=== PATIENT | female | born 1960 | race Caucasian/White ===

== ENCOUNTER → 2018-07-02 08:44 | Outpatient (CLI) | payer OTHER, SELFPAY ==
[2018-07-02 09:50] LABS: Basophils # 0.1 K/mm3 (0-0.2); Basophils % 0.9 % (0.1-2.0); Eosinophils # 0.3 K/mm3 (0.0-0.4); Eosinophils % 4.4 % (0.1-12.0); Hemoglobin 13.2 g/dL (12.2-16.2); Lymphocytes # 2.2 K/mm3 (0.7-4.5); Lymphocytes % 34.8 K/mm3 (10-50); Mean Corpuscular Hemoglobin 30.8 pg (27.0-31.2); Mean Corpuscular Volume 93.2 fl (81-99); Mean Platelet Volume 7.5 fl (7.4-10.4); Monocytes # 0.4 K/mm3 (0.1-1.0); Monocytes % 6.9 % (1.7-9.3); Neutrophils # 3.4 K/mm3 (1.8-7.8); Platelet Count 271 K/mm3 (142-424); Red Cell Distribution Width 12.7 % (11.5-17.5); White Blood Count 6.4 K/mm3 (4.8-10.8)
[2018-07-02 11:24] LABS: Alanine Aminotransferase 28 U/L (12-78); Albumin Level 3.7 gm/dL (3.4-5.0); Albumin/Globulin Ratio 1.3 (1.1-1.8); Alkaline Phosphatase 92 U/L (46-116); Anion Gap 9.6 mEq/L (5-15); Aspartate Amino Transferase 16 U/L (15-37); Bilirubin,Total 0.7 mg/dL (0.2-1.0); Blood Urea Nitrogen 17 mg/dL (7-18); Carbon Dioxide 31 mmol/L (21.0-32.0); Chloride 106 mmol/L (98-107); Chol/HDL Ratio 2.7 (1-3.5); Cholesterol 156 mg/dL (140-200); Creatinine,Serum 0.83 mg/dL (0.55-1.02); Estimated Glomerular Filt Rate 71 ml/min (>60); GFR (African American) 86 ML/MIN (>60); Globulin 2.9 gm/dl (1.3-3.2); Glucose 91 mg/dL (74-106); HDL Cholesterol 58 mg/dL (29-89); LDL Cholesterol 82 mg/dL (0-130); Potassium 4.6 mmoL/L (3.5-5.1); Sodium 142 mmol/L (136-145); T4 (Thyroxine) 11.1 ug/dl (4.7-13.3); Thyroid Stimulating Hormone 3.61 uIU/ml (0.358-3.740); Total Protein,Serum 6.6 gm/dL (6.4-8.2); Triglycerides 79 mg/dL (30-200); VLDL Cholesterol 16 mg/dL (0-40)
[2018-07-04 07:53] LABS: Vitamin D 25 Hydroxy 24.6 ng/mL (30.0-100.0)
[2018-07-04 07:54] LABS: Vitamin B12 276 pg/mL (232-1245)
== END ==
PROVIDERS: PCP Family Medicine; Visit Provider Family Medicine
DX: E03.9 Hypothyroidism, unspecified (principal); E78.5 Hyperlipidemia, unspecified; I10 Essential (primary) hypertension; R25.2 Cramp and spasm; R53.83 Other fatigue
CPT/HCPCS: 36415; 80053; 80061; 82607; 82652; 84436; 84443; 85025

== ENCOUNTER → 2018-07-06 13:51 | Outpatient (CLI) | payer OTHER, SELFPAY ==
--- NOTE | 2018-07-06 14:30 | MM_ITS ---
MM Dig screening mamm BI w/CAD ORDERING PHYSICIAN : James Davis MD PATIENT AGE: 58 years GENDER: Female COMPARISON: March 2012, December 2009 studies from [facility] INDICATION: ITS.REASON: SCREENING TECHNIQUE: Standard CC and MLO images were obtained. R2 CAD reviewed. FINDINGS: . Moderate density mildly heterogeneous breast bilaterally, this breast pattern the sensitivity of mammography No focal area of significant concern either breast.Bilateral follow-up in one year recommended. Would note Ultrasound can compliment/augment mammography with moderately dense breast of this character. If any palpable areas arise ultrasound can be useful compliment to mammography. RIGHT BREAST:No new areas significant concern. Follow-up in one year would be recommended and encouraged LEFT BREAST:. Stable appearance the left breast with no significant new findings. Similar areas of density IMPRESSION: ...... No new areas of significant concern either breast. Moderately dense inhomogeneous breast pattern does decreases to mammography somewhat. ultrasound can be useful compliment to mammography Bilateral follow-up in one year recommended and should be emphasized & encouraged.. BI-RADS Category: 2 2 Benign Finding(s) RECOMMENDED FOLLOW-UP: 1YR 1 YEAR FOLLOW-UP (A letter has been sent to the patient regarding results of the study.)
== END ==
PROVIDERS: PCP Family Medicine; Visit Provider Family Medicine
DX: Z12.31 Encounter for screening mammogram for malignant neoplasm of breast (principal)
CPT/HCPCS: 77067

== ENCOUNTER → 2018-10-17 13:50 | Outpatient (CLI) | payer OTHER, SELFPAY ==
--- NOTE | 2018-10-17 14:04 | XR_ITS ---
XR thoracic spine 3V Ordering Physician: James Davis MD Patient Age: 58 years: Female HISTORY: ITS.REASON: ACUTE RT THORACIC BACK PAIN TECHNIQUE: AP lateral and swimmer's view T-spine. COMPARISON :Previous chest film 04/04/1970 & FINDINGS . The thoracic vertebral bodies are intact with no compression fracture nor obvious lesion. There are degenerative changes of marginal osteophytes throughout the T-spine, most evident mid and lower T-spine anteriorly with marginal osteophytes at most levels more evident to the right than left. The pedicles intact no paraspinal mass. Ribs adjacent the spine unremarkable. Old screen illness disease changes again noted and described on previous chest film Disc spaces are fairly well-maintained throughout the T-spine with only some borderline narrowing left at T 9/10 and borderline diffuse disc disc narrowing T10-11 IMPRESSION: . No acute findings T-spine. Minimal degenerative changes T-spine manifest primarily by marginal osteophyte formation throughout the mid and lower T-spine. Borderline disc space narrowing lower T-spine T10-11, & left T9/10 Extensive Granulomatous disease disease lungs again incidentally noted
--- NOTE | 2018-10-17 14:04 | XR_ITS ---
XR lumbar spine min 4V Ordering Physician: James Davis MD Patient Age: 58 years: Female HISTORY: Low back pain TECHNIQUE: Five-view lumbar spine series COMPARISON : No relevant previous studies FINDINGS The lumbar vertebral bodies are intact with no compression fracture or lesion. Bones fairly well mineralized Most notable feature is the degenerative Disc space narrowing L4/5. Slightly more pronounced at the right. Mild spondylosis with some mild posterior ridging at this level most evident to the right Only minor anterior marginal osteophyte formation throughout the L-spine & into the lower T-spine. Other also some degenerative facet changes bilaterally L5/S1 right greater than left. The sacrum intact. SI joints unremarkable. Pedicles transverse processes unremarkable. IMPRESSION: Developing degenerative changes lumbar spine . Degenerative disc narrowing at L 4/5 most evident to the right Minimal anterior marginal osteophyte formation throughout L-spine, most evident to the right L4/5 L3/4
== END ==
PROVIDERS: PCP Family Medicine; Visit Provider Family Medicine
DX: M54.6 Pain in thoracic spine (principal)
CPT/HCPCS: 72072; 72110

== ENCOUNTER 2018-11-22 14:30 | Outpatient (RCR) | payer OTHER, SELFPAY ==
--- NOTE | 2018-10-28 16:23 | HMH.PTOPEV ---
PT Outpatient Evaluation Rehab PT Outpatient Evaluation Start: 10/28/18 14:25 Freq: Status: Active Protocol: Document 10/28/18 15:22 PHOCANDELARIA (Rec: 10/28/18 16:17 PHORNE [id number]) Electronically Signed By Navin Duran, PT 10/28/18 15:22 Outpatient Therapy Subjective History Subjective History Pt is a 58 yowf with complaints of low back pain which radiates into the right LE. Pt reports pain started in August when she woke up. Pt reports pain is a 5/10 at the moment, 3/10 at best, and 10/ 10 at worst. Pt states when pain is bad, her right hip locks and will not move. Pt describes pain as burning, achy, tingly, and numb at times. Pt states symptoms are worst when sitting, driving, or bending, and pain is relieved by rest, heat, or laying on her left side. Pt reports having HTN, COPD and thyroid issues. Pt reports smoking 2-3 packs a day for majority of her life, but has recently quit. Pt denies significant surgeries or comorbidities. Chief Complaint Pain Stiff Weakness Symptom Type Ache Sharp Burning Numbness Tingling Shooting Symptoms Relieved By Rest/Positioning Symptoms Aggravated By Prone Sitting Standing Bending/Stooping Physical Activity Twisting Walking Lifting Prior Functional Limitations None Current Functional Limitations Lifting Housework Driving Sleeping Standing Sitting Squatting Walking Stairs Symptom Descrip
== END 2018-11-22 14:35 | disposition home or self-care (01) ==
LOC: PT 14:30
PROVIDERS: Visit Provider Family Medicine
DX: M54.5 Low back pain (principal)
CPT/HCPCS: 97010; 97012; 97014; 97110; 97140; 97163; G0283

== ENCOUNTER 2020-09-24 22:05 | Emergency (ER) | payer OTHER, SELFPAY ==
[2020-09-24 22:15] VITALS: BMI 36.3
--- NOTE | 2020-09-24 22:15 | XR_ITS ---
PROCEDURE: XR CHEST 2V CLINICAL HISTORY: fall Posttraumatic pain COMPARISON: CR CXR CHEST(2 VIEWS-NOT PORTABLE) from 04/03/2017 CR CXR CHEST(2 VIEWS-NOT PORTABLE) from 04/04/2017 CR XR CHEST 2V from 07/03/[address] CHEST WO CON from 09/24/2020 FINDINGS: The cardiomediastinal silhouette and pulmonary vascularity are within normal limits. Numerous small calcified nodules/miliary pattern noted consistent with old granulomatous disease. Mild degenerative changes thoracic spine IMPRESSION: No acute findings. Dictated by: Abiodun Clarke MD 09/25/2020 05:35 Abiodun Clarke MD in [place] 09/25/2020 05:35
--- NOTE | 2020-09-24 22:15 | CT_ITS ---
PROCEDURE: CT CHEST WO CON CLINICAL INDICATION: fall Posttraumatic pain, fall with injury and pain, rib pain COMPARISON: No exams were available for comparison TECHNIQUE: Axial images obtained with sagittal and coronal reformats. All CT scans at the facility use one or more dose reduction, viz: automated exposure control, ma/kV adjustment per patient size (including targeted exams where dose is matched to indication, i.e. head), or iterative reconstruction technique. 3D reformatted images performed of thoracic cage FINDINGS: HEART AND MEDIASTINAL STRUCTURES: No evidence of aortic aneurysm. Calcified lymph nodes are present in the ander. No mediastinal adenopathy. There is mild thickening of the pericardium measuring up to 1.2 cm LUNGS AND PLEURAL SPACES: Innumerable tiny calcified nodule/miliary pattern noted consistent with old granulomatous disease. No lobar consolidation or collapse. No effusions. BONY STRUCTURES: No acute bony abnormalities apparent. Thoracic spine spondylosis UPPER ABDOMEN: Possible horseshoe kidney incompletely imaged. ADDITIONAL FINDINGS: No other significant abnormalities. IMPRESSION: 1. No acute finding. 2. Small pericardial effusion. 3. Other nonacute findings as described above Dictated by: Abiodun Clarke MD 09/25/2020 06:06 Abiodun Clarke MD in [place] 09/25/2020 06:06
[2020-09-24 22:22] VITALS: BP 148/100; PULSE 87; RESP 15; TEMP 36.9; O2SAT 98; BMI 36.3
--- NOTE | 2020-09-24 23:06 | HMH.EDFALL ---
ED Disposition Clinical Impression: Contusion of rib on right side Qualifiers: Encounter type: initial encounter Qualified Code(s): S20.211A - Contusion of right front wall of thorax, initial encounter Disposition: Home, Self-Care Condition on Discharge: Good Instructions: DI for Rib Contusion Additional Instructions: use meds and see pcp for follow up Referrals: James Davis MD [Primary Care Provider] - - Critical Care Critical Care Time: No Attestation: On 09/24/20, the high probability of a clinically significant, sudden or life threatening deterioration of the following system(s) required my full and direct attention, intervention and personal management. The time I documented below is in addition to time spent performing reported procedures but includes the following listed in this critical care notation. Medical Decision Making - Medical Records Medical records reviewed: Yes: I reviewed the patient's medical records. - Nirmal Inquiry Pt receiving controlled substance: No Vital Signs: 09/24/20 22:22 Temperature 98.4 F Temperature Source Oral Pulse Rate [Left Brachial] 87 Respiratory Rate 15 Blood Pressure [Left Arm] 148/100 H Blood Pressure Mean [Left Arm] 116 Blood Pressure Source [Left Arm] Automatic Cuff Blood Pressure Position [Left Arm] Sitting 02 Sat by Pulse Oximetry 98 Oxygen Delivery Method Room Air - Lab Data Lab results reviewed: Yes: I reviewed the patient's lab results. Orders (Tests/Meds): ORDERS Category Date Time Status CT chest wo con Stat Cat Scan 09/24/20 22:15 Taken XR chest 2V Stat Exams 09/24/20 22:15 Taken - Radiology Data #1 Image(s): Chest Image Reviewed: Yes I reviewed the patient's radiology image Preliminary Findings: No Fracture Seen - CT Data CT Scan: Chest Time Received: 23:[address] Reviewed: Yes: I have viewed the radiologist's interpretation Preliminary Findings: Abnormal (see report ), No Fracture Seen Medical Decision Narrative: workman comp forms completed - no fx seen Fall HPI - General Chief Complaint: Fall Stated Complaint: AO 09/24/20 fell at work [employer] [facility] Time Seen by Provider: 09/24/20 23:00 Mode of Arrival: Family Vehicle Source of Information: Patient, Medical Record Limitations: No Limitations Description of Symptoms (Recalled from ER Triage Doc. by RN): fell while at work, landed on trash can, complains of pain to ruq abd and right side rib cage - History of Present Illness HPI Narrative: fell at work and hit rt lat rib against thrash can - she denied abd pain to me - no neck pain and no hip pain MD complaint: fall Onset (ago): hour(s) Fall from: standing Fall witnessed: no Place fall occurred: work Loss of consciousness: none Prolonged down time: no Context: tripped/slipped Location of injury: chest Severity: moderate Quality: dull Associated symptoms (after fall): denies - Related Data Home Medications Medication Instructions Recorded Confirmed Levothyroxine Sodium 50 mcg PO DAILY 06/13/18 07/20/18 [Levothyroxine 50mcg (0.05mg) Tab] Lovastatin 20 mg PO HS 06/13/18 07/20/18 Meloxicam 7.5 mg PO BID 06/13/18 07/20/18 Metoprolol Succinate [Toprol XL 100 mg PO DAILY 06/13/18 07/20/18 100mg tablet] lisinopriL [Lisinopril 10mg Tab] 10 mg PO DAILY 06/13/18 07/20/18 raNITIdine HCL [Ranitidine HCl] 150 mg PO DAILY 07/20/18 07/20/18 Previous Rx's Medication Instructions Recorded Albuterol Sulfate [Albuterol HFA 1 - 2 puffs IH Q4-6H PRN #1 inh 07/03/19 Inhaler] Promethazine/Dextromethorphan 5 ml PO Q6HP PRN #240 syrup 07/03/19 [Promethazine-Dm Syrup] levoFLOXacin [Levaquin 500mg 500 mg PO DAILY #7 tab 07/03/19 tab] methylPREDNISolone [Medrol] 4 mg PO DIRECTED 6 Days #21 07/03/19 tab.[email or web address] Allergies Allergy/AdvReac Type Severity Reaction Status Date / Time No Known Allergies Allergy Verified 07/20/18 12:39 [facility] History - Hepatitis A Screen Drug use
[2020-09-25 00:08] VITALS: BP 135/76; PULSE 73; RESP 16; TEMP 36.8; O2SAT 98
== END 2020-09-25 00:10 | disposition home or self-care (01) ==
PROVIDERS: Emergency Provider Emergency Medicine; PCP Family Medicine
DX: S20.211A Contusion of right front wall of thorax, initial encounter (principal); W18.09XA Striking against other object with subsequent fall, initial encounter; Y92.69 Other specified industrial and construction area as the place of occurrence of the external cause; Y99.0 Civilian activity done for income or pay
CPT/HCPCS: 71046; 71250; 99282

== ENCOUNTER 2020-10-24 22:35 | Emergency (ER) | payer OTHER, SELFPAY ==
[2020-10-24 22:36] VITALS: BP 132/90; PULSE 87; RESP 16; TEMP 36.5; O2SAT 97; BMI 31.8
[2020-10-24 22:44] VITALS: BMI 33.3
--- NOTE | 2020-10-24 22:53 | HMH.EDSKAF ---
ED Disposition Clinical Impression: Needlestick injury of finger of right hand Disposition: Home, Self-Care Condition on Discharge: Good Instructions: DI for Puncture Wound Additional Instructions: f/u per [facility] Referrals: James Davis MD [Primary Care Provider] - - Critical Care Critical Care Time: No Attestation: On 10/24/20, the high probability of a clinically significant, sudden or life threatening deterioration of the following system(s) required my full and direct attention, intervention and personal management. The time I documented below is in addition to time spent performing reported procedures but includes the following listed in this critical care notation. Medical Decision Making - Medical Records Medical records reviewed: Yes: I reviewed the patient's medical records. - Nirmal Inquiry Pt receiving controlled substance: No Vital Signs: 10/24/20 22:36 Temperature 97.7 F Temperature Source Oral Pulse Rate [Right] 87 Respiratory Rate 16 Blood Pressure [Right Arm] 132/90 Blood Pressure Mean [Right Arm] 104 02 Sat by Pulse Oximetry 97 Orders (Tests/Meds): ORDERS Category Date Time Status Complete Blood Count Auto Diff Stat Lab 10/24/20 22:45 Ordered HBsAg Screen Stat Lab 10/24/20 22:45 Ordered HIV AB(1/2) Exposures Stat Lab 10/24/20 22:45 Ordered HIV Panel [id number] Stat Lab 10/24/20 22:45 Ordered Liver Panel Stat Lab 10/24/20 22:45 Ordered PT/PTT Stat Lab 10/24/20 22:45 Ordered Skin/Abscess/FB HPI - General Chief complaint: Skin/Abscess/Foreign Body Stated complaint: needle stick Time Seen by Provider: 10/24/20 22:53 Mode of Arrival: Ambulatory Source of Information: Patient, Medical Record Limitations: No Limitations Description of Symptoms (Recalled from ER Triage Doc. by RN): pt states recieved needlestick to rt index finger from needle from butterfly that attaches to blood tube. - History of Present Illness HPI narrative: needle stick rt index finger - not used on pt - no blood exposure - employee complaint: other (needle stick) Onset (ago): hour(s) Tetanus up to date: yes Location: R hand Severity: moderate Associated symptoms: denies other symptoms Treatments prior to arrival: none - Related Data Home Medications Medication Instructions Recorded Confirmed Levothyroxine Sodium 50 mcg PO DAILY 06/13/18 07/20/18 [Levothyroxine 50mcg (0.05mg) Tab] Lovastatin 20 mg PO HS 06/13/18 07/20/18 Meloxicam 7.5 mg PO BID 06/13/18 07/20/18 Metoprolol Succinate [Toprol XL 100 mg PO DAILY 06/13/18 07/20/18 100mg tablet] lisinopriL [Lisinopril 10mg Tab] 10 mg PO DAILY 06/13/18 07/20/18 raNITIdine HCL [Ranitidine HCl] 150 mg PO DAILY 07/20/18 07/20/18 Previous Rx's Medication Instructions Recorded Albuterol Sulfate [Albuterol HFA 1 - 2 puffs IH Q4-6H PRN #1 inh 07/03/19 Inhaler] Promethazine/Dextromethorphan 5 ml PO Q6HP PRN #240 syrup 07/03/19 [Promethazine-Dm Syrup] levoFLOXacin [Levaquin 500mg 500 mg PO DAILY #7 tab 07/03/19 tab] methylPREDNISolone [Medrol] 4 mg PO DIRECTED 6 Days #21 07/03/19 tab.ds.pk Allergies Allergy/AdvReac Type Severity Reaction Status Date / Time No Known Allergies Allergy Verified 07/20/18 12:39 [facility] History - Hepatitis A Screen Drug use history?: No High risk sexual behaviors?: No History of sexually transmitted infection?: No Currently employed?: No Childcare worker?: No Do you have indoor plumbing?: Yes Do you have electricity?: Yes Attestation statement:: This patient has been screened for Hepatitis A risk factors. I have reviewed the patient's past medical history: Yes Medical History: Reports:: Chronic Obstructive Pulmonary Disease (COPD), Hyperlipidemia, Hypertension, Lung Disease (copd) Denies:: Cancer, Diabetes Mellitus Type 1, Diabetes Mellitus Type 2, Internal Pacemaker, MRSA, Seizures Other Medical History: Reports: Hypothyroidism Other Surgeries: Yes: Hy
[2020-10-24 23:01] VITALS: BP 132/90; PULSE 78; RESP 14; TEMP 36.6; O2SAT 97
[2020-10-24 23:17] LABS: Basophils # 0.1 K/mm3 (0-0.2); Basophils % 1.1 % (0.1-2.0); Eosinophils # 0.4 K/mm3 (0.0-0.4); Eosinophils % 4.4 % (0.1-12.0); Hematocrit 43.2 % (37.0-47.0); Hemoglobin 13.9 g/dL (12.2-16.2); Lymphocytes # 2.9 K/mm3 (0.7-4.5); Lymphocytes % 33.8 % (10-50); Mean Corpuscular HGB Conc 32.2 g/dL (31.8-35.4); Mean Corpuscular Hemoglobin 29.6 pg (27.0-31.2); Mean Corpuscular Volume 91.8 fl (81-99); Mean Platelet Volume 7.6 fl (7.4-10.4); Monocytes # 0.5 K/mm3 (0.1-1.0); Monocytes % 5.7 % (1.7-9.3); Neutrophils # 4.8 K/mm3 (1.8-7.8); Neutrophils % 55.1 % (37.0-80.0); Platelet Count 301 K/mm3 (142-424); Red Cell Distribution Width 12.7 % (11.5-17.5); White Blood Count 8.7 K/mm3 (4.8-10.8)
[2020-10-24 23:21] LABS: Alanine Aminotransferase 21 U/L (12-78); Albumin Level 4.2 g/dl (3.5-5.0); Alkaline Phosphatase 96 U/L (38-126); Aspartate Amino Transferase 28 U/L (14-36); Bilirubin,Direct 0.1 mg/dl (0.0-0.4); Bilirubin,Indirect 0.4 mg/dL (0.0-0.9); Bilirubin,Total 0.5 mg/dl (0.2-1.3); Bilirubin,Unconjugated 0.4 mg/dL (0.0-1.1); Total Protein,Serum 7.2 g/dl (6.3-8.2)
[2020-10-24 23:30] LABS: Activated Partial Thrombo Time 24.2 seconds (23.6-34.0); INR 1.01 (0.9-1.1); Prothrombin Time 11.2 seconds (9.4-11.8)
[2020-10-26 08:35] LABS: Hep B Surface Ab, Qual Non Reactive (.); Hepatitis B Surface Antigen Negative (Negative); Hepatitis C Antibody <0.1 s/co ratio (0.0-0.9)
[2020-10-26 10:29] LABS: HIV Screen 4th Generation wRfx Non Reactive (Non Reactive)
== END 2020-10-24 23:03 | disposition home or self-care (01) ==
PROVIDERS: Emergency Provider Emergency Medicine; PCP Family Medicine
DX: S61.230A Puncture wound without foreign body of right index finger without damage to nail, initial encounter (principal); W22.8XXA Striking against or struck by other objects, initial encounter; Y92.69 Other specified industrial and construction area as the place of occurrence of the external cause; Y99.0 Civilian activity done for income or pay; F17.210 Nicotine dependence, cigarettes, uncomplicated
CPT/HCPCS: 80076; 85025; 85610; 85730; 86703; 86706; 87340; 87380; 99282; G0432

== ENCOUNTER → 2021-02-14 07:25 | Outpatient (CLI) | payer OTHER, SELFPAY ==
--- NOTE | 2021-02-14 | CA_ITS ---
APPROVED REPORT Exam: Exercise Treadmill Technologist: gina patel, Ht: 5 ft 5 in Wt: 190 lbs BSA: 1.94 m2 HR: 69 bpm BP: 138/90 mmHg Indications: Percardial pain Medical History Medications: Lisinopril,,,,, Levothyroxine,,,,, Metoprolol,,,,, Lovastatin,,,,, MeLOXICAM,,,,, RanTIDINE,,,,, Allergies: nkda Cardiac Risk Factors: HTN, Hyperlipidemia, FHX of CAD Stress Test Details Test: Lamonte HR Resting HR: 78 bpm Max Heart Rate (APMHR): 160.503262 bpm Max HR Achieved: 136 bpm Target HR (85% APMHR): 136.535846 bpm % of APMHR: 85.00 Recovery HR: 90 bpm BP Resting BP: 138/90 mmHg Max BP: 193/94 mmHg Recovery BP: 193.0/94.0 mmHg ECG Resting ECG: Sinus Rhythm Clinical Exercise duration: 08:46 min Highest Stage Achieved: Stage 3: 3.4 mph at 14% grade. Exercise capacity: 10.1 METs Overall Exercise Capacity for Age: Excellent Stress ECG Conclusion No chest pain. SOB at peak exercise which resolved during recovery. No ectopy. Less than 1.5mm ST Depression. GXT only. Good exercise capacity. Apporiate BP response to exercise. Test Summary REST . . . . . . . Standing REST . . . . . . . Sitting REST 10:05 0.0 0.0 78 . 138/ 90 . . Stage 1 01:00 10.0 1.7 87 . . . . Stage 1 02:00 10.0 1.7 98 . . . . Stage 1 03:00 10.0 1.7 101 . 152/ 94 . . Stage 2 01:00 12.0 2.5 107 . . . . Stage 2 02:00 12.0 2.5 110 . . . . Stage 2 03:00 12.0 2.5 115 . 156/ 90 . . Stage 3 01:00 14.0 3.4 124 . . . . Stage 3 02:00 14.0 3.4 129 . . . . Stage 3 02:46 14.0 3.4 136 . . . Stop exercise at 08:46 RECOVERY 01:00 0.0 0.0 115 . . . . RECOVERY 02:00 0.0 0.0 94 . . . . RECOVERY 03:00 0.0 0.0 89 . 193/ 94 . . RECOVERY 04:00 0.0 0.0 83 . 193/ 94 . . RECOVERY 05:00 0.0 0.0 82 . 168/ 96 . . RECOVERY 05:38 0.0 0.0 82 . 150/ 92 . . Electronically signed by : Gregorio Fernandez, 02/14/2021 10:19:05
--- NOTE | 2021-02-14 08:34 | XR_ITS ---
PROCEDURE: XR DEXA AXIAL SKELETON CLINICAL HISTORY: POST-MENOPAUSAL COMPARISON: No exams were available for comparison FINDINGS: The right hip BMD is 0.730 with a T-score of -1.7. The left hip BMD is 0.708 with a T-score of -1.9. The lumbar spine BMD is 0.811 with a T-score of -2.1. IMPRESSION: This patient is considered osteopenic according to the World Health Organization criteria. Bone density is between 10 and 25 percent below young normal. Fracture risk is moderate. Treatment is advised. Based on these results a follow-up exam is recommended in 2 year. Dictated by: Abiodun Clarke MD 02/14/2021 17:12 Abiodun Clarke MD in [place] 02/14/2021 17:12
--- NOTE | 2021-02-14 08:35 | XR_ITS ---
PROCEDURE: XR HIP RT 2-3V W/PELVIS CLINICAL INDICATION: BILATERAL HIP PAIN COMPARISON: CR XR HIP LT 2-3V W/PELVIS from 02/14/2021 FINDINGS: There are mild osteoarthritic changes involving both hips with slight decrease in the joint space. No fracture or dislocation. No lytic or blastic change. Surgical clip overlies the left SI joint region. There are degenerative changes in the lower lumbar spine. IMPRESSION: Minimal osteoarthritic changes of the hips Dictated by: Abiodun Clarke MD 02/14/2021 09:36 Abiodun Clarke MD in [place] 02/14/2021 09:36
== END ==
PROVIDERS: PCP Family Medicine; Visit Provider Family Medicine
DX: R07.2 Precordial pain (principal); M25.552 Pain in left hip; M25.551 Pain in right hip; Z78.0 Asymptomatic menopausal state
CPT/HCPCS: 73502; 77080; 93017

== ENCOUNTER → 2021-02-27 15:02 | Outpatient (CLI) | payer OTHER, SELFPAY | LOC: RAD 15:03 → RT 15:42 | PROVIDERS: PCP Family Medicine; Visit Provider Nurse Practitioner Family | DX: R07.89 Other chest pain (principal); R55 Syncope and collapse; R00.2 Palpitations; I10 Essential (primary) hypertension; J44.9 Chronic obstructive pulmonary disease, unspecified; Z87.891 Personal history of nicotine dependence | CPT/HCPCS: 93270 ==

== ENCOUNTER → 2021-03-10 15:45 | Outpatient (CLI) | payer OTHER, SELFPAY ==
[2021-03-10 16:35] LABS: Blood Urea Nitrogen 18 mg/dl (7-17); Estimated Glomerular Filt Rate 85 ml/min (>60); GFR (African American) 103 ML/MIN (>60)
== END ==
PROVIDERS: Visit Provider Nurse Practitioner Family
DX: Z01.812 Encounter for preprocedural laboratory examination (principal); R07.9 Chest pain, unspecified; R06.00 Dyspnea, unspecified; R00.2 Palpitations; R55 Syncope and collapse; I10 Essential (primary) hypertension; J44.9 Chronic obstructive pulmonary disease, unspecified; Z87.891 Personal history of nicotine dependence
CPT/HCPCS: 36415; 82565; 84520

== ENCOUNTER → 2021-03-11 06:10 | Outpatient (CLI) | payer OTHER, SELFPAY ==
--- NOTE | 2021-03-11 06:10 | CT_ITS ---
PROCEDURE: CT ANGIO CORONARY ARTERY CLINCAL INDICATION: chest pain Near syncopal Former smoker HTN High cholesterol COMPARISON: No exams were available for comparison TECHNIQUE: IV Contrast: 200 mL Isovue 370 Volumetric images obtained with curved planar reformats, axial, sagittal and coronal reformats. All CT scans at the facility use one or more dose reduction, viz: automated exposure control, ma/kV adjustment per patient size (including targeted exams where dose is matched to indication, i.e. head), or iterative reconstruction technique. Screw exam heart rate was in the lower 60s therefore, no medication needed for bradycardia. FINDINGS: Coronary artery calcium score is 181 indicating moderate plaque burden with high cardiovascular disease risk. The coronary artery cusps are more prominent than usual especially the left cusp. The left main coronary artery is fairly short and has an unremarkable appearance bifurcating into the LAD and circumflex. Motion artifact somewhat obscures fine detail of the distal branches of the LAD and circumflex. The LAD gives off a prominent 1st diagonal in then become smaller than expected but extending to the inferior wall at the intraventricular septum. The circumflex is the dominant branch on the left. A marginal branch extends off of the proximal circumflex unremarkable proximally. Soft plaque and calcific plaque involves the proximal aspect of the circumflex. The stenosis hears appears to be less than 50 percent. Motion artifact however does hamper stenosis evaluation. Small amount of calcific plaque is present in the proximal RCA without significant stenosis. There is right-sided dominance with RCA given rise to the PDA and the posterior lateral branch to the left ventricle. IMPRESSION: 1. Coronary artery calcium score 181 2. Prominent coronary cusps 3. Fibrocalcific plaque in the mid circumflex with less than 50 percent stenosis. 4. Right-sided dominance with nonocclusive plaque in the proximal RCA. 5. No severe stenotic lesions apparent however, the distal vessels are not well delineated due to cardiac motion artifact. Dictated by: Abiodun Clarke MD 03/13/2021 09:43 Abiodun Clarke MD in [place] 03/13/2021 09:43
--- NOTE | 2021-03-11 06:10 | CA_ITS ---
APPROVED REPORT EXAM: Comprehensive 2D, Doppler, and color-flow Echocardiogram Wireless Network Engineer: Aylin Mejía, YURI, RVS Ht: 5 ft 5 in Wt: 193lbs BSA: 1.95 BP: 148/88 mmHg Indications: Chest Pain, COPD, Palpitations, Dyspnea, Fatigue, Family Hx-CAD, Ex-smoker 2D Dimensions IVSd 0.99 cm LVEF (Visual) 73.60 % PWd 1.19 cm LA Volume 51.60 mL LVDd 5.90 cm LA Volume Index 26.50 mL/m2 (M/F) 16-34 LVDs 3.35 cm LVOT 2.10 cm (M/F) 1.5-2.5 M-Mode Dimensions LA Diam 3.32 cm (1.9-4.0) Ao Diam 3.89 cm (2.0-3.7) EPSs 0.40 cm TAPSE 3.35 (<1.7) LV Diastology E Decel Time 197.00 (160-240 msec) E/A Ratio 1.22 MED E' 7.60 (< 7 cm/sec) MED A' 10.40 cm/s E'/MED E' Ratio 10.00 (>14) LAT E' 8.40 (<10 cm/sec) LAT A' 15.00 cm/s E/LAT E' Ratio 9.05 (>14) Aortic Valve LVOT Max 126.00 (70-110 cm/s) LVOT VTI 27.55 cm AoV Peak Ac. 148.00 (50-130 cm/s) AO Peak GR. 8.70 mmHg AO Mean GR. 4.80 (<5 mmHg) AO VTI 33.78 (18-25 cm) BUNNY (VTI) 2.82 (2.5-4.5 cm2) Mitral Valve MV A Velocity 62.00 (40-130 cm/s) E/A Ratio 1.22 MV Decel. Time 197.00 (160-240 ms) Pulmonary Valve PV Peak Velocity 78.00 (50-150 cm/s) Left Ventricle Left atrium is mildly enlarged, left ventricle is normal size, mild concentric left ventricular hypertrophy, visually estimated ejection fraction 55% with no regional wall motion abnormality, grade 1 diastolic dysfunction seen without tissue Doppler evidence of raise left atrial pressure. Right Ventricle Right atrium and right ventricle are normal size and contractility. Aortic Valve Aortic valve is grossly normal, there is no aortic stenosis or aortic insufficiency. Mitral Valve Mitral valve is grossly normal, there is trace mitral regurgitation. Tricuspid Valve Tricuspid grossly normal, there is trace tricuspid regurgitation, tricuspid regurgitation jet velocity is inadequate for calculation of the right ventricular systolic pressure. Pulmonic Valve Pulmonic valve is poorly visualized. Great Vessels Aortic root is normal size. Pericardium No significant pericardial effusion noted. Conclusion 1. Normal left ventricular size, preserved left ventricular systolic function, visually estimated ejection fraction 55% with no regional wall motion abnormality, grade 1 diastolic dysfunction seen without tissue Doppler evidence of raise left atrial pressure. 2. Trace mitral and tricuspid regurgitation. 3. No significant pericardial effusion noted. Electronically signed by : Jass Barraza, 03/11/2021 18:32:31
[2021-03-11 06:24] VITALS: BMI 31.6
[2021-03-11 06:41] VITALS: BP 134/85; PULSE 66; RESP 18; TEMP 36.1; O2SAT 96
== END ==
PROVIDERS: PCP Family Medicine; Visit Provider Nurse Practitioner Family
DX: R07.89 Other chest pain (principal); R55 Syncope and collapse; R00.2 Palpitations; I10 Essential (primary) hypertension; J44.9 Chronic obstructive pulmonary disease, unspecified; Z87.891 Personal history of nicotine dependence
CPT/HCPCS: 75574; 93306; Q9967

== ENCOUNTER → 2021-07-03 16:48 | Outpatient (CLI) | payer OTHER, SELFPAY ==
[2021-07-03 17:09] LABS: Coronavirus 19, PCR Not Detected (NotDetected); Influenza A, PCR Not Detected (NotDetected); Influenza B, PCR Not Detected (NotDetected)
== END ==
PROVIDERS: PCP Family Medicine; Visit Provider Nurse Practitioner
DX: Z20.822 Contact with and (suspected) exposure to COVID-19 (principal)
CPT/HCPCS: C9803; U0003; U0005

== ENCOUNTER → 2021-09-11 19:55 | Outpatient (CLI) | payer OTHER, SELFPAY | PROVIDERS: PCP Family Medicine; Visit Provider Nurse Practitioner | DX: J02.0 Streptococcal pharyngitis (principal) ==

== ENCOUNTER → 2022-01-19 16:18 | Outpatient (CLI) | payer OTHER, SELFPAY ==
[2022-01-19 16:29] LABS: Microscopic, Urine URINE MICROSCOPIC (MICROSCOPIC)
[2022-01-19 17:05] LABS: Appearance,Urine CLEAR (Clear); Bilirubin,Urine Negative (Negative); Blood, Urine Negative (Negative); Color,Urine YELLOW (Yellow); Glucose,Urine (UA) Negative (Negative); Ketones,Urine Negative (Negative); Leukocyte Esterase,Urine Negative (Negative); Nitrate,Urine POSITIVE (Negative); PH,Urine 6.5 (5.0-8.5); Protein,Urine TRACE (Negative); Specific Gravity, Urine 1.015 (1.005-1.030)
[2022-01-19 17:42] LABS: Bacteria,Urine 2+ /lpf; Squamous Epithelial Cell,Urine Occasional #/hpf (0-5); WBC,Urine Occasional #/hpf (0-3)
== END ==
PROVIDERS: PCP Family Medicine; Visit Provider Nurse Practitioner
DX: N39.0 Urinary tract infection, site not specified (principal); B96.4 Proteus (mirabilis) (morganii) as the cause of diseases classified elsewhere
CPT/HCPCS: 81001; 87086; 87088; 87186

== ENCOUNTER → 2022-03-07 09:35 | Outpatient (CLI) | payer OTHER, SELFPAY ==
[2022-03-07 09:51] LABS: Basophils # 0.2 K/mm3 (0-0.2); Basophils % 2.6 % (0.1-2.0); Eosinophils # 0.3 K/mm3 (0.0-0.4); Eosinophils % 5.7 % (0.1-12.0); Hematocrit 43.1 % (37.0-47.0); Hemoglobin 13.6 g/dL (12.2-16.2); Lymphocytes # 1.8 K/mm3 (0.7-4.5); Lymphocytes % 31.7 % (10-50); Mean Corpuscular HGB Conc 31.5 g/dL (31.8-35.4); Mean Corpuscular Hemoglobin 30.7 pg (27.0-31.2); Mean Corpuscular Volume 97.4 fl (81-99); Mean Platelet Volume 8.3 fl (7.4-10.4); Monocytes # 0.4 K/mm3 (0.1-1.0); Monocytes % 7.5 % (1.7-9.3); Neutrophils % 52.5 % (37.0-80.0); Platelet Count 287 K/mm3 (142-424); Red Blood Count 4.43 M/mm3 (4.20-5.40); Red Cell Distribution Width 13.1 % (11.5-17.5); White Blood Count 5.7 K/mm3 (4.8-10.8)
[2022-03-07 10:14] LABS: Hemoglobin A1C 5.7 % (4.0-6.0)
[2022-03-07 10:21] LABS: Alanine Aminotransferase 24 U/L (12-78); Albumin Level 3.7 g/dl (3.5-5.0); Albumin/Globulin Ratio 1.5 (1.1-1.8); Alkaline Phosphatase 80 U/L (38-126); Anion Gap 8.2 mEq/L (5-15); Aspartate Amino Transferase 28 U/L (14-36); Bilirubin,Total 0.6 mg/dl (0.2-1.3); Blood Urea Nitrogen 16 mg/dl (7-17); Carbon Dioxide 29 mmol/L (22.0-30.0); Chloride 108 mmol/L (98-107); Chol/HDL Ratio 2.9 (1-3.5); Cholesterol 156 mg/dl (140-200); Estimated Glomerular Filt Rate 85 ml/min (>60); GFR (African American) 103 ML/MIN (>60); Globulin 2.4 g/dL (1.3-3.2); Glucose 110 mg/dl (74-100); HDL Cholesterol 53 mg/dl (40-60); Potassium 4.2 mmoL/L (3.5-5.1); Sodium 141 mmol/L (136-145); Total Protein,Serum 6.1 g/dl (6.3-8.2); Triglycerides 83 mg/dl (30-150); VLDL Cholesterol 17 mg/dL (0-40)
[2022-03-07 10:32] LABS: Direct LDL Cholesterol 74.87 mg/dL (100-129)
[2022-03-07 10:38] LABS: 25-OH Vitamin D, Total 39.7 ng/mL (30-100)
[2022-03-07 10:51] LABS: Thyroid Stimulating Hormone 2.81 uIU/mL (0.465-4.68)
== END ==
PROVIDERS: PCP Family Medicine; Visit Provider Family Medicine
DX: I10 Essential (primary) hypertension (principal); E03.9 Hypothyroidism, unspecified; R35.89 Other polyuria; R53.83 Other fatigue; E66.9 Obesity, unspecified; Z68.32 Body mass index [BMI] 32.0-32.9, adult
CPT/HCPCS: 36415; 80053; 80061; 82306; 83036; 84443; 85025

== ENCOUNTER → 2023-07-10 08:26 | Outpatient (CLI) | payer OTHER, SELFPAY ==
[2023-07-10 09:04] LABS: Basophils # 0.1 K/mm3 (0-0.2); Eosinophils # 0.5 K/mm3 (0.0-0.4); Eosinophils % 8.8 % (0.1-12.0); Hematocrit 40.2 % (37.0-47.0); Hemoglobin 13.7 g/dL (12.2-16.2); Lymphocytes # 2.1 K/mm3 (0.7-4.5); Lymphocytes % 37.6 % (10-50); Mean Corpuscular HGB Conc 34.1 g/dL (31.8-35.4); Mean Corpuscular Hemoglobin 31.9 pg (27.0-31.2); Mean Corpuscular Volume 93.8 fl (81-99); Mean Platelet Volume 8.2 fl (7.4-10.4); Monocytes # 0.4 K/mm3 (0.1-1.0); Monocytes % 6.4 % (1.7-9.3); Neutrophils # 2.6 K/mm3 (1.8-7.8); Neutrophils % 46.2 % (37.0-80.0); Platelet Count 218 K/mm3 (142-424); Red Blood Count 4.29 M/mm3 (4.20-5.40); Red Cell Distribution Width 12.9 % (11.5-17.5); White Blood Count 5.6 K/mm3 (4.8-10.8)
[2023-07-10 09:53] LABS: Alanine Aminotransferase 24 U/L (12-78); Albumin Level 3.8 g/dl (3.5-5.0); Albumin/Globulin Ratio 1.6 (1.1-1.8); Alkaline Phosphatase 80 U/L (38-126); Anion Gap 12.2 mEq/L (5-15); Aspartate Amino Transferase 30 U/L (14-36); Bilirubin,Total 0.6 mg/dl (0.2-1.3); Blood Urea Nitrogen 21 mg/dl (7-17); Calcium 9.4 mg/dl (8.4-10.2); Carbon Dioxide 27 mmol/L (22.0-30.0); Chloride 103 mmol/L (98-107); Chol/HDL Ratio 3.1 (1-3.5); Cholesterol 157 mg/dl (140-200); Estimated Glomerular Filt Rate 85 ml/min (>60); GFR (African American) 103 ML/MIN (>60); Globulin 2.4 g/dL (1.3-3.2); Glucose 92 mg/dl (74-100); HDL Cholesterol 50 mg/dl (40-60); Magnesium 1.6 mg/dl (1.6-2.3); Potassium 4.2 mmoL/L (3.5-5.1); Sodium 138 mmol/L (136-145); Total Protein,Serum 6.2 g/dl (6.3-8.2); Triglycerides 83 mg/dl (30-150); VLDL Cholesterol 17 mg/dL (0-40)
[2023-07-10 10:03] LABS: Direct LDL Cholesterol 84.97 mg/dL (100-129)
[2023-07-10 10:09] LABS: 25-OH Vitamin D, Total 42.1 ng/mL (30-100)
[2023-07-10 10:12] LABS: T4 (Thyroxine) 8.3 ug/dl (5.53-11.0)
[2023-07-10 10:23] LABS: Thyroid Stimulating Hormone 3.95 uIU/mL (0.465-4.68)
[2023-07-10 10:52] LABS: Vitamin B12 > 1000 pg/mL (239-931)
== END ==
LOC: LAB 08:27
PROVIDERS: PCP Family Medicine; Visit Provider Family Medicine
DX: E03.9 Hypothyroidism, unspecified (principal); I10 Essential (primary) hypertension; E78.5 Hyperlipidemia, unspecified; R53.83 Other fatigue; E66.9 Obesity, unspecified; Z68.32 Body mass index [BMI] 32.0-32.9, adult; Z13.1 Encounter for screening for diabetes mellitus; Z79.899 Other long term (current) drug therapy
CPT/HCPCS: 36415; 80053; 80061; 82306; 82607; 83735; 84436; 84443; 85025

== ENCOUNTER 2023-08-10 06:39 | Day surgery (SDC) | payer OTHER, SELFPAY ==
[2023-08-06 07:42] VITALS: BMI 32.1
[2023-08-10] VITALS (7 sets, daily range): BP systolic 98–113; BP diastolic 60–78; PULSE 59–67; RESP 16–18; TEMP 36.1–36.6; O2SAT 97–100
== END 2023-08-10 09:15 | disposition home or self-care (01) ==
PROVIDERS: PCP Family Medicine; Visit Provider Ophthalmology
PROC: (CPT 66984; principal; 2023-08-10 08:30)
DX: H25.811 Combined forms of age-related cataract, right eye (principal)
CPT/HCPCS: 66984; V2632

== ENCOUNTER 2023-08-24 06:06 | Day surgery (SDC) | payer OTHER, SELFPAY ==
[2023-08-20 11:41] VITALS: BMI 32.1
[2023-08-24] VITALS (9 sets, daily range): BP systolic 119–133; BP diastolic 70–83; PULSE 59–67; RESP 15–18; TEMP 36.1–36.5; O2SAT 96–100
== END 2023-08-24 08:31 | disposition home or self-care (01) ==
PROVIDERS: PCP Family Medicine; Visit Provider Ophthalmology
PROC: (CPT 66984; principal; 2023-08-24 07:30)
DX: H25.812 Combined forms of age-related cataract, left eye (principal)
CPT/HCPCS: 66984; V2632

== ENCOUNTER 2024-02-16 09:45 | Outpatient (CLI) | payer MEDICAID, SELFPAY ==
[2024-02-16 15:42] LABS: Chloride 104 mmol/L (98-107); Potassium 4.9 mmoL/L (3.5-5.1); Sodium 139 mmol/L (136-145)
[2024-02-16 15:45] LABS: Alanine Aminotransferase 17 U/L (12-78); Alkaline Phosphatase 93 U/L (38-126); Anion Gap 9.9 mEq/L (5-15); Aspartate Amino Transferase 24 U/L (14-36); Bilirubin,Total 0.6 mg/dl (0.2-1.3); Blood Urea Nitrogen 15 mg/dl (7-17); Calcium 9.7 mg/dl (8.4-10.2); Carbon Dioxide 30 mmol/L (22.0-30.0); Cholesterol 163 mg/dl (140-200); Estimated Glomerular Filt Rate 72 ml/min (>60); GFR (African American) 88 ML/MIN (>60); Glucose 92 mg/dl (74-100); Triglycerides 103 mg/dl (30-150); VLDL Cholesterol 21 mg/dL (0-40)
[2024-02-16 15:46] LABS: Albumin Level 4.1 g/dl (3.5-5.0); Albumin/Globulin Ratio 1.5 (1.1-1.8); Chol/HDL Ratio 2.5 (1-3.5); Globulin 2.7 g/dL (1.3-3.2); HDL Cholesterol 65 mg/dl (40-60); Magnesium 1.8 mg/dl (1.6-2.3); Total Protein,Serum 6.8 g/dl (6.3-8.2)
[2024-02-16 15:54] LABS: C-Reactive Protein 1.4 mg/L (0-4)
[2024-02-16 15:58] LABS: Direct LDL Cholesterol 80.28 mg/dL (100-129)
[2024-02-16 16:03] LABS: 25-OH Vitamin D, Total 42.1 ng/mL (30-100)
[2024-02-16 16:16] LABS: Thyroid Stimulating Hormone 1.92 uIU/mL (0.465-4.68)
[2024-02-16 16:20] LABS: Ferritin 30.5 ng/ml (11.1-264)
[2024-02-16 17:35] LABS: Vitamin B12 896 pg/mL (239-931)
== END 2024-02-16 23:59 | disposition home or self-care (01) ==
LOC: LAB.DROPOF 02-17 09:46
PROVIDERS: PCP Nurse Practitioner Family; Visit Provider Nurse Practitioner Family
DX: M79.10 Myalgia, unspecified site (principal); E78.2 Mixed hyperlipidemia; R25.2 Cramp and spasm; Z68.34 Body mass index [BMI] 34.0-34.9, adult
CPT/HCPCS: 80053; 80061; 82306; 82607; 82728; 83735; 84443; 86140

== ENCOUNTER 2024-05-26 13:28 | Outpatient (CLI) | payer MEDICAID, SELFPAY ==
--- NOTE | 2024-05-26 13:33 | XR_ITS ---
FINAL REPORT CLINICAL HISTORY: left anterior knee pain COMPARISON: None FINDINGS: Three views of the left knee reveal no evidence of fracture or dislocation. The bony alignment is normal. There are mild degenerative changes. There is no evidence of joint effusion. No localized soft tissue abnormality is seen. IMPRESSION: Mild degenerative change without acute abnormality identified. Reviewed, Interpreted and Dictated by Armand Su III, MD Transcribed by Mercedes Washington Authenticated and [facility]
--- NOTE | 2024-05-26 13:33 | XR_ITS ---
FINAL REPORT CLINICAL HISTORY: cervicalgia COMPARISON: None FINDINGS: CERVICAL SPINE 5 views were obtained. There is no acute fracture or malalignment. There is mild degenerative change with osteophytes. IMPRESSION: Degenerative changes without acute process. Reviewed, Interpreted and Dictated by Armand Su III, MD Transcribed by Mercedes Washington Authenticated and [facility]
== END 2024-05-26 23:59 | disposition home or self-care (01) ==
LOC: RAD 13:29
PROVIDERS: PCP Nurse Practitioner Family; Visit Provider Nurse Practitioner Family
DX: M54.2 Cervicalgia (principal); M25.562 Pain in left knee
CPT/HCPCS: 72050; 73562

== ENCOUNTER 2024-11-28 08:35 | Outpatient (CLI) | payer MEDICAID, SELFPAY ==
[2024-11-28 16:48] LABS: Basophils % 0.8 % (0.1-2.0); Eosinophils # 0.5 K/mm3 (0.0-0.4); Eosinophils % 9.2 % (0.1-12.0); Hematocrit 40.2 % (37.0-47.0); Lymphocytes # 1.5 K/mm3 (0.7-4.5); Lymphocytes % 29.2 % (10-50); Mean Corpuscular HGB Conc 32.3 g/dL (31.8-35.4); Mean Corpuscular Hemoglobin 29.8 pg (27.0-31.2); Mean Corpuscular Volume 92.2 fl (81-99); Mean Platelet Volume 10.8 fl (7.4-10.4); Monocytes # 0.5 K/mm3 (0.1-1.0); Monocytes % 10.6 % (1.7-9.3); Neutrophils # 2.5 K/mm3 (1.8-7.8); Neutrophils % 49.6 % (37.0-80.0); Platelet Count 262 K/mm3 (142-424); Red Blood Count 4.36 M/mm3 (4.20-5.40); Red Cell Distribution Width 12.3 % (11.5-17.5); White Blood Count 5.1 K/mm3 (4.8-10.8)
[2024-11-28 18:05] LABS: Erythrocyte Sedimentation Rate 13 mm/hr (0-30)
[2024-11-28 18:28] LABS: Alanine Aminotransferase 24 U/L (12-78); Albumin Level 4.3 g/dl (3.5-5.0); Albumin/Globulin Ratio 1.7 (1.1-1.8); Alkaline Phosphatase 90 U/L (38-126); Anion Gap 11.4 mEq/L (5-15); Aspartate Amino Transferase 28 U/L (14-36); Bilirubin,Total 0.6 mg/dl (0.2-1.3); Blood Urea Nitrogen 24 mg/dl (7-17); Calcium 9.4 mg/dl (8.4-10.2); Carbon Dioxide 26 mmol/L (22.0-30.0); Chloride 104 mmol/L (98-107); Chol/HDL Ratio 4.1 (1-3.5); Cholesterol 209 mg/dl (140-200); Estimated Glomerular Filt Rate 72 ml/min (>60); GFR (African American) 88 ML/MIN (>60); Globulin 2.5 g/dL (1.3-3.2); Glucose 84 mg/dl (74-100); HDL Cholesterol 51 mg/dl (40-60); Magnesium 2.1 mg/dl (1.6-2.3); Potassium 4.4 mmoL/L (3.5-5.1); Sodium 137 mmol/L (136-145); Total Protein,Serum 6.8 g/dl (6.3-8.2); Triglycerides 129 mg/dl (30-150); VLDL Cholesterol 26 mg/dL (0-40)
[2024-11-28 18:38] LABS: Direct LDL Cholesterol 107.42 mg/dL (100-129)
[2024-11-28 18:44] LABS: 25-OH Vitamin D, Total 47.7 ng/mL (30-100)
[2024-11-28 19:07] LABS: HIV Combo NEGATIVE (Negative)
[2024-11-28 19:15] LABS: Vitamin B12 419 pg/mL (239-931)
[2024-11-28 22:13] LABS: Hepatitis C Ab Qual. W/ RFX NEGATIVE (Negative)
[2024-11-29 16:49] LABS: RA Latex Turbid. 10.5 IU/mL (<14.0)
[2024-11-30 07:10] LABS: Antinuclear Antibodies, IFA Negative (.)
== END 2024-11-28 23:59 | disposition home or self-care (01) ==
LOC: LAB.DROPOF 11-29 09:58
PROVIDERS: PCP Nurse Practitioner Family; Visit Provider Nurse Practitioner Family
DX: E78.2 Mixed hyperlipidemia (principal); I10 Essential (primary) hypertension; M85.80 Other specified disorders of bone density and structure, unspecified site; M25.50 Pain in unspecified joint; E66.9 Obesity, unspecified; Z68.34 Body mass index [BMI] 34.0-34.9, adult; Z11.4 Encounter for screening for human immunodeficiency virus [HIV]; Z11.59 Encounter for screening for other viral diseases
CPT/HCPCS: 80053; 80061; 82306; 82607; 83735; 84550; 85025; 85651; 86038; 86431; 86803; 87389

== ENCOUNTER 2024-12-12 08:07 | Outpatient (CLI) | payer MEDICAID, SELFPAY ==
--- NOTE | 2024-12-12 08:30 | MM_ITS ---
PROCEDURE INFORMATION: Exam: MG Bilateral Screening 3D Mammography Exam date and time: 12/12/2024 8:31 AM Age: 64 years old Clinical indication: Screening examination TECHNIQUE: Imaging protocol: Bilateral Screening tomosynthesis and 2D mammography including computer-aided detection (CAD) when performed. COMPARISON: 1. MG SCBI MM Dig screening mamm BI w/CAD 07/06/2018 2:50 PM 2. MG DIG MAMMO BILAT SCREENING 03/15/2012 1:05 PM FINDINGS: MAMMOGRAPHY: Breast composition: There are scattered areas of fibroglandular density. Mass: None. Architectural distortion: None. Calcifications: No suspicious calcifications. Asymmetric density: None. Skin thickening: None. Axillary adenopathy: None. IMPRESSION: No mammographic evidence of malignancy. Annual screening is recommended unless otherwise clinically indicated. ASSESSMENT: BI-RADS Category 1: Negative.
--- NOTE | 2024-12-12 09:00 | XR_ITS ---
FINAL REPORT CLINICAL HISTORY: osteopenia COMPARISON: None FINDINGS: Using L1-4, the bone mineral density of the spine is 0.846 g/cm2, corresponding to T-score of -1.8, consistent with osteopenia. Using the left hip, the bone mineral density of the total hip is 0.649 g/cm2, corresponding to a T-score of -2.4, consistent with osteopenia. Using the right hip, the bone mineral density of the femoral neck is 0.613 g/cm2, corresponding to a T-score of -2.1, consistent with osteopenia. FRAX 10 year fracture risk is 2.1% for a hip fracture and 16% for a major osteoporotic fracture. NOTE: T-score: Standard deviation compared with peak bone mass of young adult mean. *Following the recommendations of the International Society of Bone densitometry, classification of hip BMD is based on the lower of two T-scores; total hip or femoral neck. IMPRESSION: Diminished bone mineral density consistent with osteopenia. Reviewed, Interpreted and Dictated by Chris Ferris MD Transcribed by Mercedes Washington Authenticated and [facility]
== END 2024-12-12 23:59 | disposition home or self-care (01) ==
LOC: RAD 08:08
PROVIDERS: PCP Nurse Practitioner Family; Visit Provider Nurse Practitioner Family
DX: Z12.31 Encounter for screening mammogram for malignant neoplasm of breast (principal); M85.89 Other specified disorders of bone density and structure, multiple sites
CPT/HCPCS: 77063; 77067; 77080

== ENCOUNTER 2025-05-29 12:36 | Outpatient (CLI) | payer MEDICAID, SELFPAY ==
--- OUTSIDE RECORDS SUMMARY | 2025-05-29 12:39 | XMS_ITS | Patient Health Record ---
Author Organization [facility] Address [address] [facility] [address] [place] [id number] Care Team Providers Care Hook Up Name Role Phone Brendan Davis Primary Care Provider Allergies Allergen (clinical drug ingredient) Drug/Non Drug Allergy documented on EMR Reaction Allergy Type Onset Date Status cefdinir Cefdinir itching Drug Allergy Active Reason For Referral No Information Medications Medication SIG (Take, Route, Frequency, Duration) Notes Start Date End Date Status Celecoxib 200 mg 1 capsule Orally Onc e a day; Duration: 30 days Active Clobetasol Propionate 0.05 % 1 tho appli ed topically 2 times a day Active Calcium 600 MG 1 tablet with meals Orally Twice a day; Duration: 30 day(s) Active SUMAtriptan Succinate 50 MG 1 tab(s) ora lly once with onset of headache 06/28/2018 Active Meclizine HCl 25 MG 1 tab(s) orally 3 ti mes a day 05/08/2022 Active ProAir Digihaler 108 (90 Base) MCG/ACT 2 puff(s) inhaled q4h prn Active Nitrofurantoin Macrocrystal 50 MG 1 cap(s) orally once daily Active Vitamin B12 100 MCG as directed Orally OTC Active Citalopram Hydrobromide 10 mg 1 tablet Orally Once a day; Duration: 30 days Active Levothyroxine Sodium 50 mcg TAKE ONE TAB LET BY MOUTH EVERY DAY; Duration: 30 Active Gabapentin 100 MG 2 cap(s) orally Two times a day 01/28/2024 Active Lovastatin 20 mg 1 tablet Orally Once a day; Duration: 30 days Active Metoprolol Succinate ER 100 mg TAKE 1/2 TABLET BY MOUTH TWICE DAILY; Duration: 30 days Active Lisinopril 10 mg TAKE ONE TABLET BY M OUTH EVERY DAY; Duration: 30 days Active Immunizations Vaccine Route Administration Date Status Comme nts COVID 19 Moderna Unknown 10/18/2020 Administered Tetanus Tdap-Adacel (over 7yrs) Unknown 06/14/2018 Admi nistered Problems Problem Type SNOMED Code ICD Code Onset Dates Problem Status W/U Status Risk Notes Problem Essential hypertension (83261847) Essential hypertension (I10) Active confirmed Problem Anxiety (04797752) Anxiety (F41.9) Active confirmed Problem Osteopenia (461373943) Osteopenia (M85.80) Active confirmed Problem Lumbar radiculopathy (156432347) Lumbar radiculopathy (M54.16) Active confirmed Problem Psoriasis (6827630) Psoriasis (L40.9) Active confirmed Problem Obese class II (683404049247736) BMI 35.0-35.9,adult (Z68.35) Active confirmed Problem Acquired hypothyroidism (701088593) Acquired hypothyroidism (E03.9) Active confirmed Problem Primary osteoarthritis (035205930) Primary osteoarthritis involving multiple joints (M15.0) Active confirmed Problem Migraine (14412714) Migraine without status migrainosus, not intractable, unspecified migraine type (G43.909) Active confirmed Problem Dyslipidemia (375105390) Dyslipidemia (E78.5) Active confirmed Problem Tobacco use (206364611) Tobacco use disorder (F17.200) Active confirmed Problem Daytime somnolence (732619258601) Daytime somnolence (R40.0) Active confirmed Plan Of Treatment No Information Insurance Providers Payer Name Payer Address Payer Phone Subscriber Number Group Number Insured Name Patient Relationship to Insured Coverage Start Date Coverage End Date [facility] [address] [address] [place] [phone] [id number] HERMELINDA AC Self - patient is the insured Medical (General) History Medical History History ICD Code Hypertension Hiatal Hernia Arthritis RT Breast Lump migraines psoriasis Tobacco abuse - quit 03/2017 Surgical History Surgery Date(Month/Year) total hysterectomy - staged broken left collar bone-repair moles removed C-scope/ Rubio/ adenomatous polyp x 1, left side diverticulosis 07/2018 Hospitalization History Reason Date(Month/Year) Pneumonia, COPD- [facility] 04/03/2017
--- NOTE | 2025-05-29 12:48 | XR_ITS ---
FINAL REPORT CLINICAL HISTORY: Nonspecific cough COMPARISON: None FINDINGS: PA and lateral of the chest were obtained. No acute pulmonary density is evident. Extensive tiny calcified granulomas are noted throughout both lungs. There is no evidence of effusion or other pleural disease. The mediastinum has a normal appearance. The cardiac silhouette is unremarkable. IMPRESSION: Unremarkable chest exam. Reviewed, Interpreted and Dictated by Chris Ferris MD Transcribed by Mercedes Washington Authenticated and [facility]
[2025-05-29 13:00] LABS: Hematocrit 38.8 % (37.0-47.0); Hemoglobin 13.0 g/dL (12.2-16.2); Immature Granulocytes % 0.3 %; Mean Corpuscular HGB Conc 33.5 g/dL (31.8-35.4); Mean Corpuscular Hemoglobin 30.0 pg (27.0-31.2); Mean Corpuscular Volume 89.4 fl (81-99); Nucleated Red Blood Cells % 0 %; Platelet Count 266 K/mm3 (142-424); Red Blood Count 4.34 M/mm3 (4.20-5.40); Red Cell Distribution Width-SD 40.0 fL; White Blood Count 6.3 K/mm3 (4.8-10.8)
[2025-05-29 13:38] LABS: Alanine Aminotransferase 20 U/L (12-78); Albumin Level 4.0 g/dl (3.5-5.0); Albumin/Globulin Ratio 1.6 (1.1-1.8); Alkaline Phosphatase 85 U/L (38-126); Anion Gap 9.1 mEq/L (5-15); Aspartate Amino Transferase 26 U/L (14-36); Bilirubin,Total 0.6 mg/dl (0.2-1.3); Blood Urea Nitrogen 16 mg/dl (7-17); Calcium 9.5 mg/dl (8.4-10.2); Carbon Dioxide 29 mmol/L (22.0-30.0); Chloride 104 mmol/L (98-107); Creatinine,Serum 0.80 mg/dl (0.52-1.04); Estimated Glomerular Filt Rate 72 ml/min (>60); GFR (African American) 87 ML/MIN (>60); Globulin 2.5 g/dL (1.3-3.2); Glucose 102 mg/dl (74-100); Magnesium 1.6 mg/dl (1.6-2.3); Potassium 4.1 mmoL/L (3.5-5.1); Sodium 138 mmol/L (136-145); Total Protein,Serum 6.5 g/dl (6.3-8.2)
[2025-05-29 14:08] LABS: Thyroid Stimulating Hormone 1.83 uIU/mL (0.465-4.68)
[2025-05-29 14:35] LABS: Ferritin 20.2 ng/ml (11.1-264)
[2025-05-29 14:42] LABS: Vitamin B12 402 pg/mL (239-931)
== END 2025-05-29 23:59 | disposition home or self-care (01) ==
LOC: LAB 12:37
PROVIDERS: PCP Nurse Practitioner Family; Visit Provider Nurse Practitioner Family
DX: R20.0 Anesthesia of skin (principal); R20.2 Paresthesia of skin; R05.9 Cough, unspecified; R25.2 Cramp and spasm
CPT/HCPCS: 36415; 71046; 80053; 82607; 82728; 83735; 84443; 85025

== ENCOUNTER 2025-06-21 08:26 | Outpatient (CLI) | payer MEDICAID, SELFPAY ==
--- NOTE | 2025-06-21 09:00 | MR_ITS ---
FINAL REPORT TECHNIQUE: Multiplanar and multisequence imaging of the cervical spine was obtained. CLINICAL HISTORY: cervicalgia, numbness and tingling. NECK PAIN WORSE ON LEFT ARM. BILATERAL HAND NUMBNESS. HEADACHE. NO INJURY OR TRAUMA COMPARISON: None FINDINGS: Alignment is normal. Vertebral body height is preserved. Signal intensity within the substance of the spinal cord is normal. No acute bone marrow edema. No acute paraspinal abnormality. C2/3: No focal disc herniation, central canal stenosis, or neural foraminal narrowing. C3/4: Small central protrusion. No central canal stenosis or neural foraminal narrowing. C4/5: Annular disc bulge. Mild facet osteoarthropathy. No central canal stenosis or neural foraminal narrowing. C5/6: Central protrusion. No significant central canal stenosis or neural foraminal narrowing. C6/7: Central protrusion superimposed on mild annular disc bulge. Mild mass effect on the anterior thecal sac. Mild central canal stenosis. No neural foraminal narrowing. C7/T1: No focal disc herniation, central canal stenosis, or neural foraminal narrowing. IMPRESSION: Central protrusions at several levels, most pronounced at C6-7. Mild degenerative disc disease. Reviewed, Interpreted and Dictated by Mita Peters MD Transcribed by Mercedes Washington Authenticated and [facility]
== END 2025-06-21 23:59 | disposition home or self-care (01) ==
LOC: RAD 08:26
PROVIDERS: PCP Nurse Practitioner Family; Visit Provider Nurse Practitioner Family
DX: M50.21 Other cervical disc displacement, high cervical region (principal); M50.222 Other cervical disc displacement at C5-C6 level; M50.223 Other cervical disc displacement at C6-C7 level; M50.30 Other cervical disc degeneration, unspecified cervical region
CPT/HCPCS: 72141

== ENCOUNTER 2025-08-27 08:38 | Outpatient (RCR) | payer MEDICAID, SELFPAY | END 2025-08-27 23:59 | disposition home or self-care (01) | LOC: PT 08:38 | PROVIDERS: PCP Nurse Practitioner Family; Visit Provider Orthopaedic Surgery | DX: M50.30 Other cervical disc degeneration, unspecified cervical region (principal) | CPT/HCPCS: 97162 ==